=== PATIENT | male | born 1985 | race Caucasian/White ===

== ENCOUNTER 2018-03-26 13:55 | Emergency (ER) | payer SELFPAY ==
[2018-03-26] MEDS ORDERED: Sodium Chloride 0.9% 1,000 ML IV STA (14:26)
[2018-03-26 14:44] LABS: BASO % 0.4 % (0.0-2.0); EOS # 0.1 K/uL (0.0-0.7); EOS % 1.3 % (0.0-4.0); LYMPH # 1.8 K/uL (1.0-4.3); LYMPH % 18.8 % (20.0-40.0); MEAN CELL VOLUME 90.1 fl (80.0-94.0); MEAN CORPUSCULAR HGB CONC 33.3 g/dL (33.0-37.0); MEAN PLATELET VOLUME 8.4 fl (7.2-11.7); MONO # 0.9 K/uL (0.0-0.8); MONO % 9.5 % (0.0-10.0); NEUT # 6.5 K/uL (1.8-7.0); NRBC % 0.2 % (0.0-0.0); RBC 5.34 Mil/uL (4.40-5.90); RED CELL DISTRIBUTION WIDTH 12.9 % (11.5-14.5); WHITE BLOOD COUNT 9.4 K/uL (4.8-10.8)
--- NOTE | 2018-03-26 14:51 | ED PDOC ---
History of Present Illness History of Present Illness: 33 y/o male with no PMHx presents to the ED for evaluation of a worsening cough, onset four days ago. Patient states cough is associated with subjective fever, chills, sore throat, generalized myalgia and vomiting since last night. Patient reports he is unable to tolerate any food or liquid. Patient states he has not checked his temperature while at home. Otherwise, patient denies having the flu vaccination and any known sick contacts. PMD: none HPI: Influenza Time Seen by Provider: 03/26/18 14:08 Chief Complaint: Abdominal Pain Chief Complaint (Provider): Flu-Like Symptoms History Per: Patient Exam Limitations: no limitations Have you had recent travel within the past 21 days to any of: No Onset/Duration Of Symptoms: Days (x4) Symptoms include: fever, bodyaches, sore throat, cough, vomiting Sick Contacts (Context): None Hx Influenza Vaccination: No Past Medical History Reviewed: Historical Data, Nursing Documentation, Vital Signs Vital Signs: Last Vital Signs Temp 97.8 F 03/26/18 13:59 Pulse 75 03/26/18 13:59 Resp 16 03/26/18 13:59 BP 167/97 H 03/26/18 13:59 Pulse Ox 100 03/26/18 13:59 - Medical History PMH: No Chronic Diseases - Surgical History Surgical History: No Surg Hx - Family History Family History: States: Unknown Family Hx - Immunization History Hx Influenza Vaccination: No - Allergies Allergies/Adverse Reactions: Allergies Allergy/AdvReac Type Severity Reaction Status Date / Time No Known Allergies Allergy Verified 03/26/18 13:57 Review of Systems ROS Statement: Except As Marked, All Systems Reviewed And Found Negative Constitutional: Positive for: Fever, Chills, Other (generalized myalgia) ENT: Positive for: Throat Pain Respiratory: Positive for: Cough Gastrointestinal: Positive for: Vomiting Physical Exam - Reviewed Nursing Documentation Reviewed: Yes Vital Signs Reviewed: Yes - Physical Exam Appears: Positive for: No Acute Distress (but tired and ill appearing) Skin: Positive for: Diaphoresis Eye Exam: Positive for: Normal appearance, EOMI, PERRL ENT: Positive for: Pharyngeal Erythema, Tonsillar Swelling (mild), Other (uvula midline). Negative for: Tonsillar Exudate Neck: Positive for: Normal, Painless ROM (Tenderness to palpation of the submandibular lymph nodes) Cardiovascular/Chest: Positive for: Regular Rate, Rhythm, Other (Vitals show HTN, otherwise normal). Negative for: Murmur Respiratory: Positive for: Normal Breath Sounds. Negative for: Respiratory Distress Gastrointestinal/Abdominal: Positive for: Normal Exam, Soft. Negative for: Tenderness Extremity: Positive for: Normal ROM. Negative for: Deformity Neurologic/Psych: Positive for: Alert, Oriented. Negative for: Motor/Sensory Deficits Medical Decision Making Medical Decision Making: Time: 1426 A/P: Most likely viral illness -- Will run basic labs. -- Will not do flu swab as patient out of window of Tamiflu based on 4-5 days of symptoms. -- IV Fluids and Zofran given for symptomatic relief. -- Re-assess patient -- CMP -- CBC with Differentials -- Sodium Chloride IV 1000 mls/hr -- Zofran 4 mg IV 17:20 Pt with improved symptoms. Pt encouraged to rest and increase fluids while symptoms last. Tylenol or Motrin for fever and pain. Note given for work absence. Return paramters discussed. Scribe Attestation: Documented by Mike Andino, acting as a scribe for Layla Benitez MD. Provider Scribe Attestation: All medical record entries made by the Scribe were at my direction and personally dictated by me. I have reviewed the chart and agree that the record accurately reflects my personal performance of the history, physical exam, medical decision making, and the department course for this patient. I have also personally directed, reviewed, and agree with the discharge instructions and disposition. - Laboratory Results Result Diagrams: 03/26/18 14:30 03/26/18 14:30 - ECG O2 Sat by Pulse Oximetry: 100 Disposition - Clinical Impression Clinical Impression: Viral illness - Disposition Referrals: [facility] [Outside] Disposition Time: 17:20 Condition: IMPROVED Additional Instructions: Follow up with primary medical doctor as needed. Return to the emergency department if symptoms worsen. Increase rest and hydration while symptoms last. Do not go to work until symptoms resolved. Instructions: Viral Syndrome (DC) Forms: [facility] (Mongolian), [facility] ED School/Work Excuse Print Language: SAMOAN
[2018-03-26 14:53] LABS: ALB/GLOB RATIO 1.3 (1.0-2.1); ALBUMIN 4.6 g/dL (3.5-5.0); ALT/SGPT 47 U/L (21-72); AST/SGOT 31 U/L (17-59); BLOOD UREA NITROGEN 12 mg/dl (9-20); CALCIUM 9.4 mg/dL (8.4-10.2); GFR NON-AFRICAN AMERICAN > 60
[2018-03-26] MEDS ORDERED: Dexamethasone 12 MG in Sodium Chloride 0.9% 50 ML IV STA (15:20)
[2018-03-26] MEDS ORDERED: Dexamethasone 4 mg/1 ml IVP ONE (15:30)
[2018-03-26] MEDS ORDERED: Dexamethasone 4 mg/1 ml ONE (15:33)
[2018-03-26 18:13] VITALS: BP 148/75; PULSE 63; RESP 18; TEMP 98
[2018-03-29 23:42] VITALS: O2SAT 100
== END 2018-03-26 17:30 | disposition home or self-care (01) ==
LOC: H.ER 13:55
DX: B34.9 Viral infection, unspecified (principal); R11.10 Vomiting, unspecified
CPT/HCPCS: 80053; 85025; 96374; 96375; 99283; J1100; J2405; J7030